=== PATIENT | male | born 1995 | race Caucasian/White ===

== ENCOUNTER 2023-07-24 09:10 | Day surgery (SDC) | payer OTHER ==
[~2023-07-24 09:10] MED LIST: Lactated Ringers 1,000 ML IV SCH; Sodium Chloride 0.9% 10 ML Syringe FLUSH PRN; Sodium Chloride 0.9% 10 ML Syringe FLUSH SCH
[2023-07-24] MEDS ORDERED: Bupivacaine 0.5% 30 ML SDV ONE (09:11)
[2023-07-24] MEDS ORDERED: EPINEPHrine 1 MG/ML SDV ONE (09:11)
[2023-07-24] MEDS ORDERED: Midazolam 1 MG/ML 2 ML SDV ONE (10:35)
[2023-07-24] MEDS ORDERED: fentaNYL 100 MCG/2 ML SDV ONE (10:35)
[2023-07-24] MEDS ORDERED: Propofol 200 MG/20 ML SDV ONE (10:35)
[2023-07-24] MEDS ORDERED: Lidocaine 1% 6 ML ONE (10:38)
[2023-07-24] MEDS ORDERED: ceFAZolin 2 GM Vial ONE (10:47)
== END 2023-07-24 12:30 | disposition home or self-care (01) ==
LOC: JD.SDS 09:10
PROVIDERS: ATTEND Specialist
DX: D17.9 Benign lipomatous neoplasm, unspecified (principal); L73.2 Hidradenitis suppurativa; F41.9 Anxiety disorder, unspecified; E78.00 Pure hypercholesterolemia, unspecified; F32.A Depression, unspecified; F17.210 Nicotine dependence, cigarettes, uncomplicated; G47.33 Obstructive sleep apnea (adult) (pediatric); Z79.899 Other long term (current) drug therapy
CPT/HCPCS: 11450; J0171; J0690; J2250; J2704; J3010; J3490; J7120; 00400